=== PATIENT | female | born 1960 | race Caucasian/White ===

== ENCOUNTER → 2017-08-26 | Outpatient (CLI) | payer MEDICAID ==
[2017-08-26 14:13] LABS: BUN 13 mg/dL (7-18); GFR (ESTIMATED) 74 ML/MIN (59-)
== END ==
LOC: LAB 13:23
PROVIDERS: Internal Medicine
DX: R06.09 Other forms of dyspnea (principal); I25.10 Atherosclerotic heart disease of native coronary artery without angina pectoris; I10 Essential (primary) hypertension; E78.5 Hyperlipidemia, unspecified

== ENCOUNTER → 2017-09-09 | Outpatient (CLI) | payer MEDICAID ==
--- NOTE | 2017-09-10 06:13 | RADIOLOGY REPORT PS360 ---
EXAM: CT LUNG LOW DOSE WO CONTRAST COMPARISON: None HISTORY: 57-year-old female with greater than 30 pack-year smoking history, asymptomatic ORDERING PHYSICIAN: DARCIE BARON MD PATIENT AGE: 57 years TECHNIQUE: The exam was performed on a GE Light Speed [address] scanner using 2.92 mGy CTDI. A low dose helical CT CHEST was performed on a multi-detector scanner The LDCT was performed in a facility that meets the criteria for the screening program. Data regarding this exam was submitted to [employer] which is an approved registry. The order for this exam indicates that it came as a result of a lung cancer screening counseling shard decision-making visit that included all the elements required of such a visit including smoking cessation. The radiologist interpreting this exam meets the [facility] criteria for the LDCT lung cancer screening program. The exam is reported using the Lung-RADS classification scale and reported to the ACR registry. NOTE: This study was performed for the specific purposes of lung cancer screening and is not an alternative to diagnostic chest CT. RADIATION DOSE: CTDI vol(CT dose Index-volume) = 2.92mG DLP (Dose Length Product) = 90.11 mGcm FINDINGS: There is a 5 x 4 mm noncalcified nodule in the right middle lobe adjacent to the major fissure may be due to small lymph node. Peripheral opacity is present in the left lower lobe posterior laterally and may be due to an area of parenchymal fibrosis subpleural in nature with flat-like appearance. No effusions or infiltrates or mediastinal adenopathy. There is evidence of old granulomatous disease. There are coronary artery calcifications. There has been prior median sternotomy. IMPRESSION: 1. Lung RADS Category: 3, probably benign right middle lobe and left lower lobe abnormalities 2. Other findings: Coronary artery disease, old granulomatous disease RECOMMENDATIONS: [address] of the chest without and with contrast
== END ==
LOC: RAD 13:23
DX: R06.09 Other forms of dyspnea (principal); I25.10 Atherosclerotic heart disease of native coronary artery without angina pectoris; I10 Essential (primary) hypertension; E78.5 Hyperlipidemia, unspecified; Z87.891 Personal history of nicotine dependence; Z12.2 Encounter for screening for malignant neoplasm of respiratory organs
CPT/HCPCS: G0297